=== PATIENT | female | born 1965 | race Caucasian/White ===

== ENCOUNTER → 2017-05-17 | Outpatient (REF) | payer BC ==
[2017-05-17 19:59] LABS: VITAMIN B12 LEVEL 567 PG/ML
[2017-05-17 20:00] LABS: FOLATE 16.6 NG/ML
== END ==
LOC: M LAB REF 17:52
DX: R41.3 Other amnesia (principal)

== ENCOUNTER 2017-08-31 06:44 | Day surgery (SDC) | payer BC ==
[2017-08-31] MEDS ORDERED: SIMETHICONE 40MG/0.6ML DROPS 30ML As Ordered (07:00)
[2017-08-31] MEDS: LR 1,000 ML IV (07:08)
[2017-08-31] MEDS ORDERED: PROPOFOL 200 MG/20 ML VIAL As Ordered ×2 (07:18→07:58)
[2017-08-31] MEDS ORDERED: LIDOCAINE 2% INJ 100 MG/5 ML SYRINGE As Ordered (07:18)
== END 2017-08-31 09:04 | disposition home or self-care (01) ==
LOC: M OPP 06:44
DX: Z12.11 Encounter for screening for malignant neoplasm of colon (principal); K64.4 Residual hemorrhoidal skin tags; F32.9 Major depressive disorder, single episode, unspecified; F41.9 Anxiety disorder, unspecified; F17.210 Nicotine dependence, cigarettes, uncomplicated; Z79.899 Other long term (current) drug therapy; Z90.721 Acquired absence of ovaries, unilateral; Z87.19 Personal history of other diseases of the digestive system; Z90.49 Acquired absence of other specified parts of digestive tract; Z41.1 Encounter for cosmetic surgery
CPT/HCPCS: 45378

== ENCOUNTER → 2020-07-12 | Outpatient (CLI) | payer BC ==
[~2020-07-12] MED LIST: ACYC200C8; CLON0.5T2; ESCI20TA16; MELA1TAB9 PO; MIDN1CHW PO; UNIS25TA3 PO; clonazepam PO; lexapro PO
--- NOTE | 2020-07-12 12:28 | REPMRS ---
Patient History The patient states she has not had a clinical breast exam in over a year. Patient is postmenopausal and had first child at age 34. Family history of breast cancer at age 50 or over in mother. Reductions of both breasts, 2008. Digital Woman Screen Mammo: July 12, 2020 - Exam #: [id number] Bilateral CC and MLO view(s) were taken. Technologist: Karyna Shane, Technologist Prior study comparison: June 11, 2017, bilateral digital mammo screening bilat, performed at [facility]. November 14, 2010, right breast diagnostic unilateral mammo, performed at [facility]. April 23, 2010, right breast diagnostic unilateral mammo, performed at [facility]. April 21, 2010, bilateral screening mammogram, performed at [facility]. FINDINGS: There are scattered fibroglandular densities. The Volpara volumetric breast density category is:B. There has been no change in the appearance of the mammogram from the prior studies. There is a mild amount of scattered fibroglandular density which is fairly symmetric. There is no interval development of dominant mass, architectural distortion, or grouped microcalcification suggestive of malignancy. 3-D tomosynthesis shows no additional findings. Assessment: BI-RADS/ACR category 1 mammogram. Negative Mammogram. Recommendation Breast MRI of both breasts in 6 months. Routine screening mammogram of both breasts in 1 year (for women over age 40). This patient's [facility] Lifetime Breast Cancer Risk is estimated at 25.7 %. Annual screening Breast MRI scanniing is recommended for patient's whose lifetime risk assessment is over 20%. This mammogram was interpreted with the aid of an FDA-approved computer-aided dectection system. Electronically Signed By: Socrates Echeverria MD 07/12/20 [id number]
== END ==
LOC: M WHC 11:44
PROVIDERS: ATTEND Family Medicine
DX: Z12.31 Encounter for screening mammogram for malignant neoplasm of breast (principal); Z80.3 Family history of malignant neoplasm of breast

== ENCOUNTER → 2022-02-12 | Outpatient (CLI) | payer BC ==
[~2022-02-12] MED LIST changes: +E-Z-GAS II EFFERVESCENT PACKET (SODIUM BICARB./CITRIC ACID/SIMETHICONE) As Ordered ONE; +E-Z-HD 98% w/w 340GM SUSP BTL As Ordered ONE; +E-Z-PAQUE 96% w/w SUSP 176GM BTL As Ordered ONE
== END ==
LOC: M RAD 09:33
PROVIDERS: ATTEND Family Medicine
DX: R10.13 Epigastric pain (principal); R13.10 Dysphagia, unspecified

== ENCOUNTER 2022-04-20 09:02 | Emergency (ER) | payer BC ==
[~2022-04-20] VITALS: Ht 152.4 cm; Wt 47.3 kg
[~2022-04-20 09:02] MED LIST changes: -E-Z-GAS II EFFERVESCENT PACKET (SODIUM BICARB./CITRIC ACID/SIMETHICONE) As Ordered ONE; -E-Z-HD 98% w/w 340GM SUSP BTL As Ordered ONE; -E-Z-PAQUE 96% w/w SUSP 176GM BTL As Ordered ONE
[2022-04-20] MEDS ORDERED: DERMABOND TOPICAL SKIN ADHESIVE TOP ONE ×2 (09:35→10:05)
[2022-04-20] MEDS ORDERED: IBUPROFEN 800 MG TAB PO ONE (09:35)
[2022-04-20] MEDS ORDERED: LIDOCAINE 1% MDV 20ML VIAL SC ONE (09:35)
[2022-04-20] MEDS ORDERED: SILVER NITRATE APPLICATOR (1 = QTY 10) TOP ONE (09:55)
[2022-04-20 10:26] VITALS: BP 133/63
== END 2022-04-20 10:48 | disposition home or self-care (01) ==
LOC: M ED 09:02
DX: S61.200A Unspecified open wound of right index finger without damage to nail, initial encounter (principal); W26.0XXA Contact with knife, initial encounter; F41.9 Anxiety disorder, unspecified; F32.A Depression, unspecified; Y92.009 Unspecified place in unspecified non-institutional (private) residence as the place of occurrence of the external cause; Y93.G1 Activity, food preparation and clean up; Y99.9 Unspecified external cause status; Z79.810 Long term (current) use of selective estrogen receptor modulators (SERMs); Z79.83 Long term (current) use of bisphosphonates; Z79.899 Other long term (current) drug therapy